=== PATIENT | male | born 1980 | race Caucasian/White ===

== ENCOUNTER 2019-12-03 15:21 | Inpatient (IN) | payer SELFPAY ==
[~2019-12-03] VITALS: Ht 177.8 cm; Wt 94.0 kg
--- NOTE | 2019-12-03 15:21 | NUR ---
Patient is AOx4, +nausea, photophobia, c/o severe dizziness with left eye pains & right ear pains, WHITEHEAD, equal strength on all extremities, respiration:easy, skin warm & dry, pending MD evaluation
[2019-12-03] MEDS ORDERED: MECLIZINE HCL 25 MG TABLET ONE (15:42)
[2019-12-03] MEDS ORDERED: ONDANSETRON 4 MG/2 ML VIAL ONE (15:45)
[2019-12-03] MEDS ORDERED: ONDANSETRON 4 MG/2 ML VIAL IV ONE (15:45)
[2019-12-03] MEDS ORDERED: MECLIZINE HCL 25 MG TABLET PO ONE (15:45)
[2019-12-03] MEDS ORDERED: IV NORMAL SALINE 1000 ML BAG IV ONE (15:45)
[2019-12-03 15:56] LABS: BASOPHILS # (AUTO) 0.1 K/uL (0.0-8.0); BASOPHILS % (AUTO) 0.7 % (0.0-2.0); EOSINOPHILS # (AUTO) 0.1 K/uL (0.0-0.7); EOSINOPHILS % (AUTO) 1.7 % (0.0-7.0); HEMATOCRIT 45.3 % (36.7-47.1); HEMOGLOBIN 15.2 g/dL (12.5-16.3); LYMPHOCYTES # (AUTO) 1.8 K/uL (20.0-40.0); LYMPHOCYTES % (AUTO) 21.1 % (20.5-51.5); MEAN CORPUSCULAR HEMOGLOBIN 29.3 uug (23.8-33.4); MEAN CORPUSCULAR HGB CONC 34 g/dL (32.5-36.3); MEAN CORPUSCULAR VOLUME 87.1 fL (73.0-96.2); MONOCYTES # (AUTO) 0.6 K/uL (2.0-10.0); MONOCYTES % (AUTO) 6.9 % (0.0-11.0); NEUTROPHILS % (AUTO) 69.6 % (38.5-71.5); PLATELET COUNT (AUTO) 279 K/uL (152-348); WHITE BLOOD COUNT (AUTO) 8.6 K/uL (3.6-10.2)
[2019-12-03 16:18] LABS: CREATININE 1.1 mg/dL (0.6-1.3); POTASSIUM 3.2 mmol/L (3.5-5.1)
[2019-12-03 16:24] LABS: BILIRUBIN,DIRECT 0.1 mg/dL (0.0-0.2); BILIRUBIN,TOTAL 0.5 mg/dL (0.2-1.0); TOTAL PROTEIN, SERUM 7.1 g/dL (6.4-8.2)
[2019-12-03] MEDS ORDERED: IV NORMAL SALINE 250 ML IV ONE (16:28)
[2019-12-03] MEDS ORDERED: SWABABLE VALVE TRANSFER SET EA MC ONE (16:28)
[2019-12-03] MEDS ORDERED: IOHEXOL 350 100 ML INFUS..BTL ONE (16:28)
--- NOTE | 2019-12-03 16:41 | NUR ---
Patient is back from CT scan, +vomiting yellowish gastric contents, MD is aware
[2019-12-03] MEDS ORDERED: CEFTRIAXONE 2 G in IV DEXTROSE 5% 100 ML IV ONE (17:15)
[2019-12-03] MEDS ORDERED: CEFTRIAXONE /D5W 50ML IVPB **ER PYXIS IV ONE (17:23)
--- NOTE | 2019-12-03 18:55 | NUR ---
Patient is in radiology department for procedure.
--- NOTE | 2019-12-03 19:11 | NUR ---
Patient is still in radiology department, endorsed to RITA Lee accordingly
--- NOTE | 2019-12-03 19:20 | NUR ---
Patient returned from Radiology, patient underwent fluoroscopy guided lumbar puncture.
[2019-12-03 20:09] LABS: CSF PROTEIN 45 mg/dL (15-45)
--- NOTE | 2019-12-03 20:20 | NUR ---
Critical Lab: CSF GLUCOSE - 75, readback and verified by Maite. ERMD aware, no new orders.
[2019-12-03 20:29] LABS: CSF GLUCOSE 75 mg/dL (40-70)
--- NOTE | 2019-12-03 22:21 | NUR ---
Bean Rodriguez paged, awaiting call back.
--- NOTE | 2019-12-03 22:42 | NUR ---
Bean Rodriguez on the line with ERMD
--- NOTE | 2019-12-03 23:14 | NUR ---
Report given to RITA Gasca
[2019-12-03] MEDS ORDERED: POTASSIUM CHLORIDE 20 MEQ TAB.PRT.SR PO ONE (23:45)
[2019-12-03] MEDS ORDERED: Z GUARD REMEDY PASTE 57 GM TUBE TOP PRN (23:45)
[2019-12-03] MEDS ORDERED: ACETAMINOPHEN 325 MG TABLET PO PRN (23:45)
--- NOTE | 2019-12-04 | NUR ---
Patient transported to TELE in stable condition.
--- NOTE | 2019-12-04 00:15 | NUR ---
ADMISSION NOTES Patient received into care via gurney from ER. Patient is alert/oriented x4 and complaining of headache but no n/v. All pertinent assessments completed. All safety, stroke, and fall precautions are in place. Call light and personal items are within reach at all times. Will continue to monitor and assess.
[2019-12-04 00:20] VITALS: BP 128/67
[2019-12-04 04:06] VITALS: BP 120/66
[2019-12-04] MEDS: PANTOPRAZOLE SODIUM 40 MG TABLET.DR PO SCH (06:05)
[2019-12-04 06:20] LABS: BASOPHILS # (AUTO) 0.1 K/uL (0.0-8.0); BASOPHILS % (AUTO) 0.6 % (0.0-2.0); EOSINOPHILS % (AUTO) 0.2 % (0.0-7.0); HEMATOCRIT 42.9 % (36.7-47.1); HEMOGLOBIN 14.4 g/dL (12.5-16.3); LYMPHOCYTES # (AUTO) 1.3 K/uL (20.0-40.0); LYMPHOCYTES % (AUTO) 8.8 % (20.5-51.5); MEAN CORPUSCULAR HEMOGLOBIN 29.2 uug (23.8-33.4); MEAN CORPUSCULAR HGB CONC 34 g/dL (32.5-36.3); MEAN CORPUSCULAR VOLUME 87.1 fL (73.0-96.2); MONOCYTES # (AUTO) 0.9 K/uL (2.0-10.0); MONOCYTES % (AUTO) 6.5 % (0.0-11.0); NEUTROPHILS % (AUTO) 83.9 % (38.5-71.5); PLATELET COUNT (AUTO) 281 K/uL (152-348); RED BLOOD CELL COUNT(AUTO) 4.92 MIL/uL (4.06-5.63); WHITE BLOOD COUNT (AUTO) 14.3 K/uL (3.6-10.2)
--- NOTE | 2019-12-04 06:57 | NUR ---
TEXTED DR. GIBSON FOR MRI APPROVAL.
[2019-12-04 07:12] LABS: BILIRUBIN,TOTAL 0.3 mg/dL (0.2-1.0); MAGNESIUM 2.2 mg/dL (1.8-2.4); PHOSPHOROUS 3.3 mg/dL (2.5-4.9); POTASSIUM 4.3 mmol/L (3.5-5.1); TOTAL PROTEIN, SERUM 7.1 g/dL (6.4-8.2)
[2019-12-04 07:57] LABS: THYROID STIMULATING HORMONE 0.349 mIU/mL (0.358-3.740)
[2019-12-04] MEDS ORDERED: ASPIRIN EC 81 MG TABLET.DR PO SCH (09:00)
[2019-12-04] MEDS ORDERED: INSULIN REGULAR, HUMAN 300 UNIT/3 ML VIAL SQ PRN (10:45)
[2019-12-04] MEDS ORDERED: DEXTROSE 50% 50 ML DISP.SYRIN IV PRN (10:45)
[2019-12-04] MEDS: ONDANSETRON 4 MG/2 ML VIAL IV PRN (11:30)
[2019-12-04] MEDS: BLOOD SUGAR DIAGNOSTIC 1 EACH STRIP VI SCH ×3 (11:35→20:55)
[2019-12-04 11:36] VITALS: BP 151/93
[2019-12-04] MEDS: ASPIRIN 325 MG TABLET PO SCH (14:06)
[2019-12-04] MEDS: CLOPIDOGREL 75 MG TABLET PO SCH (14:07)
[2019-12-04] MEDS ORDERED: CLOP75TA33 PO (14:08)
[2019-12-04] MEDS ORDERED: METF-440 PO (14:08)
[2019-12-04] MEDS ORDERED: ATOR40TA PO (14:08)
[2019-12-04] MEDS ORDERED: ASPI-612 PO (14:08)
[2019-12-04] MEDS ORDERED: MENT71OI TOP (14:08)
[2019-12-04] MEDS ORDERED: ACET325T53 PO (14:08)
[2019-12-04] MEDS ORDERED: INSU100V28 SQ (14:08)
[2019-12-04] MEDS ORDERED: Blood Sugar Diagnostic VI (14:08)
[2019-12-04] MEDS ORDERED: ONDA4VIA23 IV (14:08)
[2019-12-04] MEDS ORDERED: DEXT50DI8 IV (14:08)
[2019-12-04] MEDS ORDERED: PANT40TA2 PO (14:08)
--- NOTE | 2019-12-04 14:22 | NUR ---
Search Consultant Consultation: SW conducted a public health social worker consultation today, via ZOOM, for possible CVA. Patient is a 39 year old male who was brought into the ED via ambulance on 12/03/19, complaining of dizziness. Patient was lying on his side, in his hospital bed. Patient had his hand on his head, and his eyes were closed during most of the interview. Patient stated he was feeling dizzy, however was receptive to answering SW's questions. SW was able to gather personal history from the patient. Patient lives in an apartment with his fiance Mery ([address] [place] [address]. [id number], [place] [phone]). Patient reports being ambulatory, and independent with his ADL's and IADL's. Patient reports that he is currently not working, however his sources of income is unemployment. Patient's voice was a bit low, and sometimes muffled, requiring SW to ask the patient to repeat his responses, however patient was cooperative and repeated his responses when asked to. Patient is oriented x 4. SW administered the PHQ-9, and patient denied having any recent changes in his mood and behavior. Patient's PHQ-9 score is a 0. SW asked patient if he had any questions at this time, and patient stated that he just wanted to know more about his treatment plan at [facility]. SW told the patient that SW will let the charge nurse know that he wanted to learn more about his treatment plan, and will ask the nurse to meet with him to answer his questions. Patient expressed agreement. No further SS interventions needed at this time. SW informed charge nurse Marcia that patient had some more questions about his treatment plan, and asked if patient's nurse could meet with the patient to answer his questions. Marcia expressed agreement. Prior to this SW's interview, patient's attending physician, Roseann Nick NP, had just met with the patient to discuss his treatment plan. Roseann also spoke with this SW and informed this SW that the patient would be transferred to [facility] for further treatment. Patient's face sheet states patient is self-pay. JUAREZ verified with Electrical Installer Keke that patient has been referred to a Patient Accounts Construction Craft Laborer, who will follow-up with the patient to assist with insurance benefits.
[2019-12-04] MEDS: HEPARIN SODIUM,PORCINE 5,000 UNITS/ML VIAL SQ SCH ×2 (14:46→21:07)
[2019-12-04 15:06] VITALS: BP 120/59
--- NOTE | 2019-12-04 19:10 | NUR ---
Received pt in bed, sleeping, easy to arouse. Pt denies any acute distress or pain. Pt denies any severe headache or n/v at this time. Patient is AOx4, but having delays in responding. V/S stable, on room air. NSR on tele monitor. Safety measures in place. Fall and stroke precaution in place. Call light within reach. Will continue with the plan of care.
[2019-12-04 19:51] VITALS: BP 129/74
[2019-12-04] MEDS ORDERED: ATORVASTATIN 40 MG TABLET PO SCH (21:00)
[2019-12-05 00:22] VITALS: BP 127/72
[2019-12-05] MEDS: ONDANSETRON 4 MG/2 ML VIAL IV PRN (02:46)
[2019-12-05 05:11] VITALS: BP 153/79
[2019-12-05] MEDS: HEPARIN SODIUM,PORCINE 5,000 UNITS/ML VIAL SQ SCH ×2 (05:53→13:19)
[2019-12-05] MEDS: PANTOPRAZOLE SODIUM 40 MG TABLET.DR PO SCH (06:16)
[2019-12-05 06:21] LABS: BASOPHILS % (AUTO) 0.2 % (0.0-2.0); EOSINOPHILS % (AUTO) 0.1 % (0.0-7.0); HEMATOCRIT 45.7 % (36.7-47.1); HEMOGLOBIN 15.3 g/dL (12.5-16.3); LYMPHOCYTES # (AUTO) 1.4 K/uL (20.0-40.0); LYMPHOCYTES % (AUTO) 9.9 % (20.5-51.5); MEAN CORPUSCULAR HEMOGLOBIN 29.2 uug (23.8-33.4); MEAN CORPUSCULAR HGB CONC 33 g/dL (32.5-36.3); MEAN CORPUSCULAR VOLUME 87.5 fL (73.0-96.2); MONOCYTES # (AUTO) 1.1 K/uL (2.0-10.0); MONOCYTES % (AUTO) 7.7 % (0.0-11.0); NEUTROPHILS # (AUTO) 11.9 K/uL (1.8-8.9); NEUTROPHILS % (AUTO) 82.1 % (38.5-71.5); PLATELET COUNT (AUTO) 324 K/uL (152-348); RED BLOOD CELL COUNT(AUTO) 5.22 MIL/uL (4.06-5.63); WHITE BLOOD COUNT (AUTO) 14.5 K/uL (3.6-10.2)
[2019-12-05] MEDS: BLOOD SUGAR DIAGNOSTIC 1 EACH STRIP VI SCH ×4 (06:32→16:12)
[2019-12-05 06:36] LABS: CREATININE 1.1 mg/dL (0.6-1.3); MAGNESIUM 2.2 mg/dL (1.8-2.4); PHOSPHOROUS 2.9 mg/dL (2.5-4.9); POTASSIUM 3.4 mmol/L (3.5-5.1)
--- NOTE | 2019-12-05 06:45 | NUR ---
Pt slept intermittently through the night. Pt is awake and denies any acute distress or pain at this time. Pt denies headache/ N/V at this time. Patient had 1 episode of greenish emesis, Zofranx1 was given. Pt tolerated. Comfort care and needs attended. Fall precaution maintained. V/S stable on room air. Sinus [address] 58 on tele monitor. Safety measures in place. Bed low and locked in position. Call light within reach. Will endorse to the oncoming nurse accordingly.
--- NOTE | 2019-12-05 07:30 | NUR ---
AWAKE ALERT AND RESPOND TO SIMPLE QUESTIONS. NO SS OF PAIN OR SOB. CLOSELY MONITORED
[2019-12-05] MEDS: CLOPIDOGREL 75 MG TABLET PO SCH (08:03)
[2019-12-05] MEDS: ASPIRIN 325 MG TABLET PO SCH (08:03)
[2019-12-05] MEDS ORDERED: POTASSIUM CHLORIDE 50 ML IV SCH ×2 (09:00→10:00)
--- NOTE | 2019-12-05 09:00 | NUR ---
PATIENT TRIED TO GET OUT OF BED BY SELF, VERY UNSTEADY AND WEAK. HIGH RISK FOR FALL. 1;! SITTER OBTAINED
--- NOTE | 2019-12-05 10:04 | NUR ---
VERIFIED WITH Aldair LOPEZ REGARDING KCL DOSE AND SAID TO GIVE ONLY 10 MEQ X1. DOSE GIVEN
--- NOTE | 2019-12-05 11:52 | NUR ---
NO ACUTE CHANGE FROM AM ASSESSMENT. SEEN BY PASTE MAKER Aldair LOPEZ, NOTED LABS WITH LOW K, REPLACED WITH KCL 10 MEQ IV X1. NO SEIZURE OR ACUTE DISTRESS. 1:1 SITTER AT BEDSIDE FOR SAFETY
[2019-12-05 12:03] VITALS: BP 150/82
--- NOTE | 2019-12-05 16:00 | NUR ---
MARIN MARMOLEJO NOTIFIED OF PATIENT DISCHARGE TO [facility]
--- NOTE | 2019-12-05 16:46 | NUR ---
REPORT GIVEN TO MITESH, DISCHARGED TO [facility] VIA AMBULANCE ACLS
[2019-12-05] MEDS ORDERED: METFORMIN HCL 500 MG TABLET PO SCH (18:00)
== END 2019-12-05 16:45 | disposition short-term general hospital (02) | DRG 64 ==
LOC: ER 15:21 → TELE3 23:54
PROVIDERS: ADMIT Registered Nurse; ATTEND Registered Nurse
PROC: B01BYZZ Fluoroscopy of Spinal Cord using Other Contrast (ICD-10-PCS; principal; 2019-12-03)
PROC: 009U3ZX Drainage of Spinal Canal, Percutaneous Approach, Diagnostic (ICD-10-PCS; principal; 2019-12-03)
DX: I63.89 Other cerebral infarction (principal); I77.74 Dissection of vertebral artery; D72.829 Elevated white blood cell count, unspecified; E11.9 Type 2 diabetes mellitus without complications; E78.5 Hyperlipidemia, unspecified; E87.6 Hypokalemia; F17.210 Nicotine dependence, cigarettes, uncomplicated; E66.9 Obesity, unspecified; Z68.29 Body mass index [BMI] 29.0-29.9, adult; R40.2362 Coma scale, best motor response, obeys commands, at arrival to emergency department; R40.2142 Coma scale, eyes open, spontaneous, at arrival to emergency department; R40.2252 Coma scale, best verbal response, oriented, at arrival to emergency department; R29.701 NIHSS score 1; R42 Dizziness and giddiness
CPT/HCPCS: 36415; 62270; 70030-TC; 70450; 70496; 70551; 83735; 84100; 84157; 84443; 85025; 85610; 93005; 93307; 93880; A4663; G0378; J0696; J1644; J1815; J2405; J3480; J7030; J7050; J8597; Q9967

== ENCOUNTER 2019-12-09 17:58 | Inpatient (IN) | payer MEDICAID, SELFPAY ==
[~2019-12-09] VITALS: Ht 177.8 cm; Wt 90.7 kg
[~2019-12-09 17:58] MED LIST: ACET325T53 PO; ASPI-612 PO; ATOR40TA PO; Blood Sugar Diagnostic VI; CLOP75TA33 PO; DEXT50DI8 IV; INSU100V28 SQ; MENT71OI TOP; METF-440 PO; ONDA4VIA23 IV; PANT40TA2 PO
--- NOTE | 2019-12-09 18:10 | NUR ---
ADMITTED FROM [facility] A 39 YO MALE SP CVA, SP SHUNT FROM [facility] VIA AMBULANCE AWAKE ALERT AND ANSWERS SIMPLE QUESTIONS APPROPRIATELY, AWARE THAT HE IS AT [facility]. DENIES ANY PAIN OR SOB. DR Katharina OSULLIVAN NOTIFIED OF ADMISSION
[2019-12-09 18:13] VITALS: BP 150/98
[2019-12-09] MEDS ORDERED: DEXTROSE 50% 50 ML DISP.SYRIN IV PRN (19:15)
[2019-12-09] MEDS ORDERED: Z GUARD REMEDY PASTE 57 GM TUBE TOP PRN (19:15)
[2019-12-09] MEDS ORDERED: MAGNESIUM HYDROXIDE 30 ML LIQUID UDC PO PRN (19:15)
[2019-12-09] MEDS ORDERED: ONDANSETRON 4 MG/2 ML VIAL IV PRN (19:15)
[2019-12-09] MEDS ORDERED: ZOLPIDEM 5 MG TABLET PO PRN (19:15)
[2019-12-09] MEDS: IV NS 1000 ML 1,000 ML IV PRN (19:48)
--- NOTE | 2019-12-09 20:00 | NUR ---
Received sleeping, easily arouses to name, follows commands well. Denies headaches or dizziness. Safety and fall precautions discussed. IV started to LAC IV site; site no s/s of infiltrations. Addendum: 12/10/19 at 0042 by GRIFFIN WERNER RN Amended: Links added. Addendum: 12/10/19 at 0047 by GRIFFIN WERNER RN Amended: Links added. Addendum: 12/10/19 at 0049 by GRIFFIN WERNER RN Amended: Links added.
[2019-12-09 20:03] VITALS: BP 126/72
[2019-12-09] MEDS: BLOOD SUGAR DIAGNOSTIC 1 EACH STRIP VI SCH (20:09)
[2019-12-09] MEDS: DOCUSATE SODIUM 100 MG CAPSULE PO SCH (20:51)
[2019-12-09] MEDS: ATORVASTATIN 40 MG TABLET PO SCH (20:51)
--- NOTE | 2019-12-09 21:00 | NUR ---
Call received from Mery Gunn #[phone] who claims to be the patient's rosye. Able to take po meds without swallowing difficulty. Bruises noted to abdomen and R side of neck. Voided using the urinal; clear corine urine. Addendum: 12/10/19 at 0047 by GRIFFIN WERNER RN Amended: Links added. Addendum: 12/10/19 at 0049 by GRIFFIN WERNER RN Amended: Links added.
[2019-12-10] VITALS: BP 123/78
--- NOTE | 2019-12-10 | NUR ---
Incontinent of urine. PM care provided. Patient cooperative, but disoriented to date and time. Reoriented PRN. Addendum: 12/10/19 at 0049 by GRIFFIN WERNER RN Amended: Links added.
--- NOTE | 2019-12-10 03:30 | NUR ---
Assisted to use the urinal; voided. Am care rendered; patient got mildly agitated during linen change; advised appropriately. Refusing DVT pumps. Addendum: 12/10/19 at 0433 by GRIFFIN WERNER RN Amended: Links added.
[2019-12-10 04:00] VITALS: BP 145/91
--- NOTE | 2019-12-10 06:00 | NUR ---
Turned and repositioned; gets easily agitated with repositioning and care. Advised appropriately. No neuro changes.
[2019-12-10] MEDS: BLOOD SUGAR DIAGNOSTIC 1 EACH STRIP VI SCH ×4 (06:31→21:00)
[2019-12-10] MEDS: PANTOPRAZOLE SODIUM 40 MG TABLET.DR PO SCH (06:31)
[2019-12-10 06:44] LABS: BASOPHILS # (AUTO) 0.1 K/uL (0.0-8.0); BASOPHILS % (AUTO) 0.5 % (0.0-2.0); EOSINOPHILS % (AUTO) 0.2 % (0.0-7.0); HEMATOCRIT 42.3 % (36.7-47.1); HEMOGLOBIN 14.4 g/dL (12.5-16.3); LYMPHOCYTES # (AUTO) 1.6 K/uL (20.0-40.0); LYMPHOCYTES % (AUTO) 11.1 % (20.5-51.5); MEAN CORPUSCULAR HEMOGLOBIN 29.5 uug (23.8-33.4); MEAN CORPUSCULAR HGB CONC 34 g/dL (32.5-36.3); MEAN CORPUSCULAR VOLUME 86.8 fL (73.0-96.2); MONOCYTES # (AUTO) 1.2 K/uL (2.0-10.0); MONOCYTES % (AUTO) 8.4 % (0.0-11.0); NEUTROPHILS # (AUTO) 11.4 K/uL (1.8-8.9); NEUTROPHILS % (AUTO) 79.8 % (38.5-71.5); PLATELET COUNT (AUTO) 342 K/uL (152-348); RED BLOOD CELL COUNT(AUTO) 4.87 MIL/uL (4.06-5.63); WHITE BLOOD COUNT (AUTO) 14.3 K/uL (3.6-10.2)
[2019-12-10 06:59] LABS: BILIRUBIN,TOTAL 0.6 mg/dL (0.2-1.0); CREATININE 0.9 mg/dL (0.6-1.3); PHOSPHOROUS 2.7 mg/dL (2.5-4.9); POTASSIUM 3.4 mmol/L (3.5-5.1); TOTAL PROTEIN, SERUM 7.1 g/dL (6.4-8.2)
[2019-12-10 07:03] LABS: THYROID STIMULATING HORMONE 0.444 mIU/mL (0.358-3.740)
--- NOTE | 2019-12-10 07:31 | NUR ---
IN BED AWAKE ALERT AND ABLE TO RESPOND WITH SIMPLE QUESTIONS AND FOLLOWS COMMAND. NO SS OF PAIN OR RESP DISTRESS. JUNCTIONAL NON SUSTAINED WITH ULSR/SB ON MONITOR. ZIO-PATCH LEFT CHEST INTACT. STROKE PROTOCOL IN PLACED
[2019-12-10] MEDS: ASPIRIN 325 MG TABLET PO SCH (08:07)
[2019-12-10] MEDS: METFORMIN HCL 500 MG TABLET PO SCH ×2 (08:07→16:27)
[2019-12-10] MEDS: IV NS 1000 ML 1,000 ML IV PRN ×2 (08:07→21:30)
[2019-12-10] MEDS: DOCUSATE SODIUM 100 MG CAPSULE PO SCH ×2 (08:07→21:18)
[2019-12-10] MEDS: CLOPIDOGREL 75 MG TABLET PO SCH (08:07)
[2019-12-10] MEDS ORDERED: ASPIRIN EC 81 MG TABLET.DR PO SCH (09:00)
[2019-12-10] MEDS ORDERED: POTASSIUM CHLORIDE 20 MEQ TAB.PRT.SR PO ONE (09:30)
[2019-12-10] MEDS: HYDROCODONE/APAP 5-325MG TABLET PO PRN ×2 (10:18→22:38)
--- NOTE | 2019-12-10 10:50 | NUR ---
SEEN BY PT, OT, ST PLS SEE NOTES.
[2019-12-10 11:47] VITALS: BP 151/91
[2019-12-10 15:21] VITALS: BP 128/93
--- NOTE | 2019-12-10 15:54 | NUR ---
DR HOLMAN NOTIFIED OF PATIENT NEEDING PSYCH CONSULT RE: REFUSED TO PARTICIPATE WITH CARE, REFUSED TO EAT, NOT INTERACTING WITH CARE
--- NOTE | 2019-12-10 17:54 | NUR ---
no acute changes, no seizure, zio-patch left side of chest intact. sr on monitor. still waiting for dr padilla for psych eval
--- NOTE | 2019-12-10 19:15 | NUR ---
received patient on position , awake , able to repnd but slow, able to follow simple command , no slurring , iv intact lac nsat 75 ml/hr , incontinent , with a zio patch intact on left chest , sr at 87 , on ra , incision site on right side of the head by the ear , bruised but intact no bleeding noted , no distress noted
[2019-12-10 20:00] VITALS: BP 135/74
[2019-12-10] MEDS: ATORVASTATIN 40 MG TABLET PO SCH (21:17)
--- NOTE | 2019-12-10 22:00 | NUR ---
refused the intermittent stockings
[2019-12-11] VITALS: BP 144/75
--- NOTE | 2019-12-11 | NUR ---
SLEEPING CALMLY , EASILY AROUSABLE ,ALERT , NO SIGN OF DISTRESS , ABLE TO ANSWER APPROPRIATELY, NO SLURRING
--- NOTE | 2019-12-11 01:22 | NUR ---
SNACKS AND FLUID OFFERED REFUSED
--- NOTE | 2019-12-11 02:00 | NUR ---
sleeping comfortably no distress , easily arousable ,
[2019-12-11] MEDS: HYDROCODONE/APAP 5-325MG TABLET PO PRN ×2 (02:18→04:06)
[2019-12-11 04:00] VITALS: BP 156/80
--- NOTE | 2019-12-11 05:00 | NUR ---
awake , oriented , able to follow simple command , eyes slightly red ,vs taken , complained of pain , medication offered and accepted , norco pain medication given ,
--- NOTE | 2019-12-11 06:00 | NUR ---
awake oriented ,answer appropriately , complains of headache 3 /10 post norco , eyes less red , calm , iv ns 75 ml intact , incontinent
[2019-12-11] MEDS: BLOOD SUGAR DIAGNOSTIC 1 EACH STRIP VI SCH ×4 (06:13→21:11)
[2019-12-11 06:14] LABS: BASOPHILS % (AUTO) 0.3 % (0.0-2.0); EOSINOPHILS % (AUTO) 0.1 % (0.0-7.0); HEMOGLOBIN 14.4 g/dL (12.5-16.3); LYMPHOCYTES % (AUTO) 7.5 % (20.5-51.5); MEAN CORPUSCULAR HEMOGLOBIN 29.3 uug (23.8-33.4); MEAN CORPUSCULAR HGB CONC 34 g/dL (32.5-36.3); MEAN CORPUSCULAR VOLUME 85.5 fL (73.0-96.2); MONOCYTES # (AUTO) 0.9 K/uL (2.0-10.0); MONOCYTES % (AUTO) 6.7 % (0.0-11.0); NEUTROPHILS # (AUTO) 11.8 K/uL (1.8-8.9); NEUTROPHILS % (AUTO) 85.4 % (38.5-71.5); PLATELET COUNT (AUTO) 372 K/uL (152-348); RED BLOOD CELL COUNT(AUTO) 4.91 MIL/uL (4.06-5.63); WHITE BLOOD COUNT (AUTO) 13.8 K/uL (3.6-10.2)
[2019-12-11 06:26] LABS: CREATININE 0.9 mg/dL (0.6-1.3); POTASSIUM 3.2 mmol/L (3.5-5.1)
[2019-12-11] MEDS: PANTOPRAZOLE SODIUM 40 MG TABLET.DR PO SCH (06:46)
--- NOTE | 2019-12-11 07:20 | NUR ---
Received report from shift commander nurse, patient in bed asleep, no distress noted at this time, bed in low position, side rails up x2. Bed alarm set. Sinus jesus on the monitor,
[2019-12-11] MEDS: DOCUSATE SODIUM 100 MG CAPSULE PO SCH ×2 (09:02→21:01)
[2019-12-11] MEDS: ACETAMINOPHEN 325 MG TABLET PO PRN ×2 (09:02→17:11)
[2019-12-11] MEDS: METFORMIN HCL 500 MG TABLET PO SCH ×2 (09:03→17:11)
[2019-12-11] MEDS: CLOPIDOGREL 75 MG TABLET PO SCH (09:03)
[2019-12-11] MEDS: ASPIRIN 325 MG TABLET PO SCH (09:03)
[2019-12-11 11:00] VITALS: BP 149/91
[2019-12-11] MEDS: POTASSIUM CHLORIDE 50 ML IV SCH ×4 (11:00→13:40)
--- NOTE | 2019-12-11 12:30 | NUR ---
Patient was given lunch and encouraged to eat, patient able to drink all of boost independently after opened and handed to him with a straw, no difficulty swallowing. puree diet tolerated well but needed additional encouragement to continue eating. Full assist with feeding due to lack of motivation to eat.
[2019-12-11] MEDS: LOSARTAN POTASSIUM 50 MG TABLET PO SCH (12:45)
[2019-12-11 15:15] VITALS: BP 141/84
--- NOTE | 2019-12-11 17:00 | NUR ---
Patient given a bed bath with patient authorization. Asked if he could stand and he stated that he cannot. patient is able to mobilize in the bed independently. Upon evaluation, patient's midline noted to be pulled out.
[2019-12-11 20:31] VITALS: BP 139/96
[2019-12-11] MEDS ORDERED: risperiDONE 0.5 MG TABLET PO SCH (21:00)
[2019-12-11] MEDS: MIRTAZAPINE 15 MG TABLET PO SCH (21:01)
[2019-12-11] MEDS: ATORVASTATIN 40 MG TABLET PO SCH (21:01)
[2019-12-12 00:46] VITALS: BP 114/67
[2019-12-12] MEDS: ACETAMINOPHEN 325 MG TABLET PO PRN ×3 (01:15→17:48)
[2019-12-12 05:13] VITALS: BP 120/72
[2019-12-12] MEDS: IV NS 1000 ML 1,000 ML IV PRN (05:33)
[2019-12-12] MEDS: BLOOD SUGAR DIAGNOSTIC 1 EACH STRIP VI SCH ×4 (06:23→20:46)
[2019-12-12] MEDS: PANTOPRAZOLE SODIUM 40 MG TABLET.DR PO SCH (06:23)
--- NOTE | 2019-12-12 07:09 | NUR ---
Pt rested well in between care; no acute distress; safety maintained assisted to BSC; had a BM; pulled out IV and reinserted to Right hand; continue to monitor; continue plan of care.
--- NOTE | 2019-12-12 07:10 | NUR ---
Received report from aircraft charter dispatcher nurse, patient in bed asleep, no distress noted. Bed in low position, side rails up x2, bed alarm on. Sinus rhythm on the monitor. patient on room air.
--- NOTE | 2019-12-12 08:00 | NUR ---
Patient tolerated puree diet and doesn't want to eat due to taste, diet trial to be upgraded for lunch.
[2019-12-12] MEDS: DOCUSATE SODIUM 100 MG CAPSULE PO SCH ×2 (08:57→20:39)
[2019-12-12] MEDS: ASPIRIN 325 MG TABLET PO SCH (08:57)
[2019-12-12] MEDS: METFORMIN HCL 500 MG TABLET PO SCH ×2 (08:57→17:49)
[2019-12-12] MEDS: CLOPIDOGREL 75 MG TABLET PO SCH (08:58)
[2019-12-12] MEDS: LOSARTAN POTASSIUM 50 MG TABLET PO SCH (09:02)
[2019-12-12 11:00] LABS: BASOPHILS # (AUTO) 0.1 K/uL (0.0-8.0); BASOPHILS % (AUTO) 0.9 % (0.0-2.0); EOSINOPHILS # (AUTO) 0.1 K/uL (0.0-0.7); EOSINOPHILS % (AUTO) 0.4 % (0.0-7.0); HEMATOCRIT 44.2 % (36.7-47.1); HEMOGLOBIN 15.3 g/dL (12.5-16.3); LYMPHOCYTES # (AUTO) 1.6 K/uL (20.0-40.0); LYMPHOCYTES % (AUTO) 12.7 % (20.5-51.5); MEAN CORPUSCULAR HEMOGLOBIN 30.1 uug (23.8-33.4); MEAN CORPUSCULAR HGB CONC 35 g/dL (32.5-36.3); MEAN CORPUSCULAR VOLUME 86.6 fL (73.0-96.2); MONOCYTES # (AUTO) 1.3 K/uL (2.0-10.0); MONOCYTES % (AUTO) 10.1 % (0.0-11.0); NEUTROPHILS # (AUTO) 9.7 K/uL (1.8-8.9); NEUTROPHILS % (AUTO) 75.9 % (38.5-71.5); PLATELET COUNT (AUTO) 356 K/uL (152-348); WHITE BLOOD COUNT (AUTO) 12.8 K/uL (3.6-10.2)
[2019-12-12 11:22] LABS: CREATININE 0.9 mg/dL (0.6-1.3); POTASSIUM 3.2 mmol/L (3.5-5.1)
[2019-12-12 11:25] LABS: PHOSPHOROUS 2.9 mg/dL (2.5-4.9)
[2019-12-12 11:30] VITALS: BP 137/75
--- NOTE | 2019-12-12 12:00 | NUR ---
Bedside nursing swallow evaluation for chopped diet during lunch performed. Patient tolerated with no complications. Patient up in chair for meal and improved meal intake observed.
[2019-12-12 16:01] VITALS: BP 144/75
[2019-12-12] MEDS ORDERED: POTASSIUM CHLORIDE 20 MEQ TAB.PRT.SR PO ONE (16:30)
[2019-12-12] MEDS ORDERED: POTASSIUM CHLORIDE 20 MEQ POWDER PACKET PO ONE (17:00)
--- NOTE | 2019-12-12 18:02 | NUR ---
Patient independently eating dinner. Left arm continues to be mildly neglected but strength intact. no swallowing difficulty during meal. Pills taken whole.
--- NOTE | 2019-12-12 19:30 | NUR ---
Received patient lying in bed. No signs or symptoms of acute distress noted at this time. Patient denies pain, or SOB. Right upper arm midline intact and infusing ordered fluids. Bed locked and low. Safety measures in place and will continue to monitor.
[2019-12-12 20:00] VITALS: BP 130/79
[2019-12-12] MEDS: ATORVASTATIN 40 MG TABLET PO SCH (20:39)
[2019-12-12] MEDS: MIRTAZAPINE 15 MG TABLET PO SCH (20:39)
[2019-12-12] MEDS: risperiDONE 1 MG TABLET PO SCH (20:39)
[2019-12-13] VITALS: BP 122/68
[2019-12-13] MEDS: ACETAMINOPHEN 325 MG TABLET PO PRN (00:07)
[2019-12-13] MEDS: IV NS 1000 ML 1,000 ML IV PRN ×2 (00:09→15:14)
[2019-12-13 04:00] VITALS: BP 120/60
[2019-12-13] MEDS: PANTOPRAZOLE SODIUM 40 MG TABLET.DR PO SCH (06:20)
[2019-12-13] MEDS: BLOOD SUGAR DIAGNOSTIC 1 EACH STRIP VI SCH ×4 (06:43→20:27)
[2019-12-13 07:09] LABS: BASOPHILS % (AUTO) 0.3 % (0.0-2.0); EOSINOPHILS % (AUTO) 0.3 % (0.0-7.0); HEMATOCRIT 42.6 % (36.7-47.1); HEMOGLOBIN 14.5 g/dL (12.5-16.3); LYMPHOCYTES # (AUTO) 1.3 K/uL (20.0-40.0); LYMPHOCYTES % (AUTO) 10.4 % (20.5-51.5); MEAN CORPUSCULAR HEMOGLOBIN 29.7 uug (23.8-33.4); MEAN CORPUSCULAR HGB CONC 34 g/dL (32.5-36.3); MEAN CORPUSCULAR VOLUME 87.2 fL (73.0-96.2); MONOCYTES # (AUTO) 1.1 K/uL (2.0-10.0); MONOCYTES % (AUTO) 8.4 % (0.0-11.0); NEUTROPHILS # (AUTO) 10.1 K/uL (1.8-8.9); NEUTROPHILS % (AUTO) 80.6 % (38.5-71.5); PLATELET COUNT (AUTO) 377 K/uL (152-348); RED BLOOD CELL COUNT(AUTO) 4.89 MIL/uL (4.06-5.63); WHITE BLOOD COUNT (AUTO) 12.5 K/uL (3.6-10.2)
[2019-12-13 07:27] LABS: MAGNESIUM 1.9 mg/dL (1.8-2.4); POTASSIUM 3.3 mmol/L (3.5-5.1)
[2019-12-13] MEDS: ASPIRIN 325 MG TABLET PO SCH (08:37)
[2019-12-13] MEDS: CLOPIDOGREL 75 MG TABLET PO SCH (08:37)
[2019-12-13] MEDS: DOCUSATE SODIUM 100 MG CAPSULE PO SCH ×2 (08:37→20:25)
[2019-12-13] MEDS: METFORMIN HCL 500 MG TABLET PO SCH ×2 (08:37→17:56)
[2019-12-13] MEDS: LOSARTAN POTASSIUM 50 MG TABLET PO SCH (08:38)
[2019-12-13 11:08] VITALS: BP 145/90
[2019-12-13] MEDS ORDERED: POTASSIUM CHLORIDE 20 MEQ TAB.PRT.SR PO ONE (11:15)
[2019-12-13 15:30] VITALS: BP 148/94
[2019-12-13 20:01] VITALS: BP 140/88
[2019-12-13] MEDS: MIRTAZAPINE 15 MG TABLET PO SCH (20:25)
[2019-12-13] MEDS: risperiDONE 1 MG TABLET PO SCH (20:25)
[2019-12-13] MEDS: ATORVASTATIN 40 MG TABLET PO SCH (20:26)
--- NOTE | 2019-12-13 20:30 | NUR ---
Received Patient alert and verbally responsive, no respiratory distress noted, denies pain.Has midline on Right upper arm intact with NS at 75 cc/hr.At 20:14 Patient noted with 1x episode of sinus tachy HR160.Patient was on bedside commode by himself.Assisted patient back to bed.Call light with in reach.Reinforced teaching to use call light for assistance. Bed locked and lowest position.Continue safety measures.Will continue to monitor.
[2019-12-14 00:39] VITALS: BP 140/76
[2019-12-14] MEDS: IV NS 1000 ML 1,000 ML IV PRN (03:37)
[2019-12-14 04:00] VITALS: BP 134/68
[2019-12-14] MEDS: PANTOPRAZOLE SODIUM 40 MG TABLET.DR PO SCH (06:04)
[2019-12-14] MEDS: BLOOD SUGAR DIAGNOSTIC 1 EACH STRIP VI SCH ×4 (06:13→20:19)
--- NOTE | 2019-12-14 06:14 | NUR ---
Patient awake sitting in the edge of bed, able to make needs known no s/s of distress noted.Has Zio path on left upper chest in place.Noted with skin discoloration on anterior neck ,Right side of the neck and mid abdomen.Midline intact on right upper arm.Due meds given .BS checked 105.Call light with in reach.Safety measures in place.Endorse to oncoming nurse.
[2019-12-14 06:21] LABS: BASOPHILS # (AUTO) 0.1 K/uL (0.0-8.0); BASOPHILS % (AUTO) 0.8 % (0.0-2.0); EOSINOPHILS # (AUTO) 0.1 K/uL (0.0-0.7); EOSINOPHILS % (AUTO) 0.7 % (0.0-7.0); HEMATOCRIT 42.4 % (36.7-47.1); HEMOGLOBIN 14.3 g/dL (12.5-16.3); LYMPHOCYTES % (AUTO) 15.1 % (20.5-51.5); MEAN CORPUSCULAR HEMOGLOBIN 29.7 uug (23.8-33.4); MEAN CORPUSCULAR HGB CONC 34 g/dL (32.5-36.3); MEAN CORPUSCULAR VOLUME 87.6 fL (73.0-96.2); MONOCYTES # (AUTO) 1.3 K/uL (2.0-10.0); MONOCYTES % (AUTO) 9.7 % (0.0-11.0); NEUTROPHILS # (AUTO) 9.7 K/uL (1.8-8.9); NEUTROPHILS % (AUTO) 73.7 % (38.5-71.5); PLATELET COUNT (AUTO) 349 K/uL (152-348); RED BLOOD CELL COUNT(AUTO) 4.84 MIL/uL (4.06-5.63); WHITE BLOOD COUNT (AUTO) 13.1 K/uL (3.6-10.2)
[2019-12-14 06:49] LABS: CREATININE 0.9 mg/dL (0.6-1.3); MAGNESIUM 2.1 mg/dL (1.8-2.4); POTASSIUM 3.2 mmol/L (3.5-5.1)
--- NOTE | 2019-12-14 08:00 | NUR ---
Pt confused denies any c/o pain. PT states that he is no hearing any voices. Pt is slow to respond. Noted right lateral bruising on right ear, purple bruise noted in front on clavicle/ sternum area, . purple bruising on abdomen, and right hip yellow bruise noted. PT has zio patch on left cw. Midline was pulled out by pt. Pt has IV on right had flushing well. Call light is within reach.
[2019-12-14] MEDS: CLOPIDOGREL 75 MG TABLET PO SCH (09:08)
[2019-12-14] MEDS: DOCUSATE SODIUM 100 MG CAPSULE PO SCH ×2 (09:08→20:11)
[2019-12-14] MEDS: METFORMIN HCL 500 MG TABLET PO SCH ×2 (09:08→16:44)
[2019-12-14] MEDS: LOSARTAN POTASSIUM 50 MG TABLET PO SCH (09:11)
[2019-12-14] MEDS: ASPIRIN EC 81 MG TABLET.DR PO SCH (09:18)
[2019-12-14] MEDS ORDERED: POTASSIUM CHLORIDE 20 MEQ TAB.PRT.SR PO ONE (11:15)
[2019-12-14 11:42] VITALS: BP 122/71
[2019-12-14] MEDS: ACETAMINOPHEN 325 MG TABLET PO PRN (11:52)
--- NOTE | 2019-12-14 12:00 | NUR ---
Pt had diarrhea noted. Pt was continent of bowel and bladder. Pt has poor appetite - DETECTIVE feeding pt. Pt does not initiate feeding himself.
[2019-12-14] MEDS: INSULIN REGULAR, HUMAN 300 UNIT/3 ML VIAL SQ PRN ×2 (12:18→20:44)
[2019-12-14 16:00] VITALS: BP 118/73
[2019-12-14 20:00] VITALS: BP 112/69
[2019-12-14] MEDS: risperiDONE 1 MG TABLET PO SCH (20:11)
[2019-12-14] MEDS: ATORVASTATIN 40 MG TABLET PO SCH (20:12)
[2019-12-14] MEDS: MIRTAZAPINE 15 MG TABLET PO SCH (20:12)
[2019-12-15] MEDS: HYDROCODONE/APAP 5-325MG TABLET PO PRN (04:20)
[2019-12-15 04:36] VITALS: BP 141/76
[2019-12-15] MEDS: IV NS 1000 ML 1,000 ML IV PRN (04:47)
[2019-12-15] MEDS: PANTOPRAZOLE SODIUM 40 MG TABLET.DR PO SCH (06:04)
[2019-12-15] MEDS: BLOOD SUGAR DIAGNOSTIC 1 EACH STRIP VI SCH ×4 (06:16→21:35)
--- NOTE | 2019-12-15 06:45 | NUR ---
Patient slept intermittently in RA saturating well 96%,no s/s of distress,uses bedside commode BM x1.IV line patent on right hand with Ns 0.9 running well at 75 cc/hr. Call light with in reach .Continue safety measures.
[2019-12-15 07:07] LABS: BASOPHILS # (AUTO) 0.1 K/uL (0.0-8.0); BASOPHILS % (AUTO) 0.4 % (0.0-2.0); EOSINOPHILS # (AUTO) 0.1 K/uL (0.0-0.7); EOSINOPHILS % (AUTO) 0.6 % (0.0-7.0); HEMATOCRIT 41.5 % (36.7-47.1); LYMPHOCYTES # (AUTO) 1.8 K/uL (20.0-40.0); LYMPHOCYTES % (AUTO) 11.4 % (20.5-51.5); MEAN CORPUSCULAR HEMOGLOBIN 29.4 uug (23.8-33.4); MEAN CORPUSCULAR HGB CONC 34 g/dL (32.5-36.3); MEAN CORPUSCULAR VOLUME 87.1 fL (73.0-96.2); MONOCYTES # (AUTO) 1.3 K/uL (2.0-10.0); MONOCYTES % (AUTO) 8.6 % (0.0-11.0); NEUTROPHILS # (AUTO) 12.3 K/uL (1.8-8.9); PLATELET COUNT (AUTO) 388 K/uL (152-348); RED BLOOD CELL COUNT(AUTO) 4.76 MIL/uL (4.06-5.63); WHITE BLOOD COUNT (AUTO) 15.6 K/uL (3.6-10.2)
[2019-12-15 07:15] LABS: MAGNESIUM 1.9 mg/dL (1.8-2.4); PHOSPHOROUS 4.3 mg/dL (2.5-4.9); POTASSIUM 3.7 mmol/L (3.5-5.1)
[2019-12-15] MEDS: METFORMIN HCL 500 MG TABLET PO SCH ×2 (08:14→17:05)
[2019-12-15] MEDS: CLOPIDOGREL 75 MG TABLET PO SCH (08:14)
[2019-12-15] MEDS: DOCUSATE SODIUM 100 MG CAPSULE PO SCH ×3 (08:14→21:00)
[2019-12-15] MEDS: ASPIRIN EC 81 MG TABLET.DR PO SCH (08:15)
[2019-12-15] MEDS: LOSARTAN POTASSIUM 50 MG TABLET PO SCH (08:23)
--- NOTE | 2019-12-15 09:00 | NUR ---
Held colace today secondary to loose stool from yesterday. Pt seen walking with physical therapy in hallway. Pt tolerated physical therapy.
[2019-12-15 11:41] VITALS: BP 121/71
[2019-12-15 14:36] LABS: *BILIRUBIN,URIN NEGATIVE (NEGATIVE); *BLOOD, URINE NEGATIVE (NEGATIVE); *CLARITY,URINE CLEAR (CLEAR); *COLOR,URINE YELLOW (YELLOW); *KETONES,URINE NEGATIVE (NEGATIVE); *UROBILINOGEN,URINE 0.2 E.U./dl (NORMAL); LEUKOCYTE ESTERASE ,URINE NEGATIVE (NEGATIVE); NITRITE, URINE NEGATIVE (NEGATIVE); UGLUCOSE NEGATIVE (NEGATIVE)
[2019-12-15] MEDS: METRONIDAZOLE 500 MG/NS 100ML 500 MG in PREMIXED 1 EACH IV SCH ×2 (14:44→21:20)
[2019-12-15 15:27] VITALS: BP 130/70
--- NOTE | 2019-12-15 16:00 | NUR ---
Lactic acid 2.5 critical noted to Hospitalist. New order received to bolus 1 lit NS and increase Main IVF to 100cc/hr.
[2019-12-15] MEDS ORDERED: IV NS 1000 ML 1,000 ML IV ONE (16:45)
[2019-12-15] MEDS: MEGESTROL ACETATE 20 MG TABLET PO SCH (17:05)
[2019-12-15 18:16] LABS: BILIRUBIN,DIRECT 0.2 mg/dL (0.0-0.2); BILIRUBIN,TOTAL 0.5 mg/dL (0.2-1.0)
--- NOTE | 2019-12-15 18:30 | NUR ---
Pt denies any c/o pain. No further diarrhea noted for today.
--- NOTE | 2019-12-15 18:35 | NUR ---
Pito here to see pt for ID eval. Urine sent @ 1300 as ordered earlier. No stool or diarrhea noted today.
--- NOTE | 2019-12-15 19:45 | NUR ---
Received patient asleep. Patient shows no signs or symptoms of distress at this time. Vital signs stable. Bed set to lowest position. Bed alarm set. Side rails x2 are up. Call light within reach. Will continue to monitor patient.
[2019-12-15 20:00] VITALS: BP 122/74
[2019-12-15] MEDS: risperiDONE 1 MG TABLET PO SCH (21:20)
[2019-12-15] MEDS: ATORVASTATIN 40 MG TABLET PO SCH (21:20)
[2019-12-15] MEDS: MIRTAZAPINE 15 MG TABLET PO SCH (21:20)
[2019-12-16] MEDS: HYDROCODONE/APAP 5-325MG TABLET PO PRN (00:47)
[2019-12-16] MEDS: IV NS 1000 ML 1,000 ML IV PRN ×2 (00:53→17:42)
[2019-12-16 04:06] VITALS: BP 107/62
[2019-12-16] MEDS: METRONIDAZOLE 500 MG/NS 100ML 500 MG in PREMIXED 1 EACH IV SCH ×3 (05:14→22:03)
[2019-12-16] MEDS: PANTOPRAZOLE SODIUM 40 MG TABLET.DR PO SCH (06:14)
[2019-12-16] MEDS: BLOOD SUGAR DIAGNOSTIC 1 EACH STRIP VI SCH ×4 (06:19→20:13)
[2019-12-16 06:56] LABS: BASOPHILS # (AUTO) 0.1 K/uL (0.0-8.0); BASOPHILS % (AUTO) 0.5 % (0.0-2.0); EOSINOPHILS # (AUTO) 0.2 K/uL (0.0-0.7); EOSINOPHILS % (AUTO) 1.2 % (0.0-7.0); HEMATOCRIT 38.8 % (36.7-47.1); HEMOGLOBIN 13.3 g/dL (12.5-16.3); LYMPHOCYTES # (AUTO) 2.1 K/uL (20.0-40.0); LYMPHOCYTES % (AUTO) 16.1 % (20.5-51.5); MEAN CORPUSCULAR HEMOGLOBIN 29.8 uug (23.8-33.4); MEAN CORPUSCULAR HGB CONC 34 g/dL (32.5-36.3); MEAN CORPUSCULAR VOLUME 86.9 fL (73.0-96.2); MONOCYTES # (AUTO) 1.2 K/uL (2.0-10.0); MONOCYTES % (AUTO) 9.1 % (0.0-11.0); NEUTROPHILS # (AUTO) 9.4 K/uL (1.8-8.9); NEUTROPHILS % (AUTO) 73.1 % (38.5-71.5); PLATELET COUNT (AUTO) 376 K/uL (152-348); RED BLOOD CELL COUNT(AUTO) 4.46 MIL/uL (4.06-5.63); WHITE BLOOD COUNT (AUTO) 12.9 K/uL (3.6-10.2)
[2019-12-16 07:23] LABS: MAGNESIUM 2.1 mg/dL (1.8-2.4); PHOSPHOROUS 3.7 mg/dL (2.5-4.9); POTASSIUM 3.5 mmol/L (3.5-5.1)
--- NOTE | 2019-12-16 07:30 | NUR ---
Received Patient dozing intermittently but responsive, no respiratory distress noted, patient denies pain. Has midline on Right upper arm intact and patent as well as a right hang 20 gauge, the midline is running NS at 100mls/hr. Patient is showing some neglect on the left side which makes him unsteady and not able to ambulate without assistance. Patient was on bedside commode by himself. Assisted patient to commode and back to bed. Call light with in reach as well as belongings. Reinforced teaching to use call light for assistance. Bed locked and lowest position.Continue safety measures.Will continue to monitor.
[2019-12-16] MEDS: CLOPIDOGREL 75 MG TABLET PO SCH (08:24)
[2019-12-16] MEDS: DOCUSATE SODIUM 100 MG CAPSULE PO SCH ×2 (08:24→20:10)
[2019-12-16] MEDS: MEGESTROL ACETATE 20 MG TABLET PO SCH ×2 (08:24→17:15)
[2019-12-16] MEDS: ASPIRIN EC 81 MG TABLET.DR PO SCH (08:24)
[2019-12-16] MEDS: METFORMIN HCL 500 MG TABLET PO SCH ×2 (08:25→17:15)
[2019-12-16] MEDS: LOSARTAN POTASSIUM 50 MG TABLET PO SCH (08:33)
[2019-12-16 11:11] VITALS: BP 137/84
--- NOTE | 2019-12-16 12:00 | NUR ---
Rehab in with patient, report from rehab Sarah says patient is neglecting the left side and does not know his limitations. will continue to monitor.
[2019-12-16 16:11] VITALS: BP 139/71
--- NOTE | 2019-12-16 19:30 | NUR ---
Patient is resting in bed. No signs of respiratory distress noted at this time. Patient was compliant with all medications. He has no appetite and is not eating well. Gave all medications as prescribed. IV is midline in right upper arm and right hand 20 gauge. Both are patent and in tact. Safety precautions in place, bed in the lowest position and locked with call light and belongings within reach. Will endorse to oncoming nurse.
--- NOTE | 2019-12-16 19:31 | NUR ---
RECEIVED PT AWAKE,ALERT AND ORIENTEDX4. PT IN NO ACUTE DISTRESS. IV INTACT. SAFETY AND COMFORT PROVIDED. ALL NEEDS ARE MET. WILL CONTINUE TO MONITOR.
[2019-12-16 20:00] VITALS: BP 120/70
[2019-12-16] MEDS: MIRTAZAPINE 15 MG TABLET PO SCH (20:11)
[2019-12-16] MEDS: ATORVASTATIN 40 MG TABLET PO SCH (20:12)
[2019-12-16] MEDS: risperiDONE 1 MG TABLET PO SCH (20:12)
--- NOTE | 2019-12-16 21:46 | NUR ---
NOTIFY DR. LOPEZ REGARDING PT CT BRAIN WITHOUT CONTRAST RESULT AND PICTURES OF THE HEAD AND PILLOW OF THE PT. PT IN NO ACUTE DISTRESS. WILL CONTINUE TO MONITOR.
--- NOTE | 2019-12-16 21:49 | NUR ---
NOTIFY DR. ERIK FRANCIS REGARDING PT PICTURES OF THE HEAD AND THE PILLOW OF THE PT.
--- NOTE | 2019-12-16 22:35 | NUR ---
DR. LOPEZ ORDERED PT TO BE TRANSFERRED TO [facility] WITH [id number]. PT IN NO ACUTE DISTRESS, SAFETY AND COMFORT PROVIDED. WILL CONTINUE TO MONITOR.
[2019-12-17] VITALS: BP 106/57
[2019-12-17 04:00] VITALS: BP 138/78
[2019-12-17] MEDS: ACETAMINOPHEN 325 MG TABLET PO PRN ×2 (05:03→17:50)
[2019-12-17] MEDS: METRONIDAZOLE 500 MG/NS 100ML 500 MG in PREMIXED 1 EACH IV SCH ×2 (05:07→14:31)
[2019-12-17] MEDS: PANTOPRAZOLE SODIUM 40 MG TABLET.DR PO SCH (06:03)
[2019-12-17] MEDS: BLOOD SUGAR DIAGNOSTIC 1 EACH STRIP VI SCH ×4 (06:38→20:17)
[2019-12-17] MEDS: IV NS 1000 ML 1,000 ML IV PRN (06:53)
[2019-12-17 06:59] LABS: BASOPHILS # (AUTO) 0.1 K/uL (0.0-8.0); BASOPHILS % (AUTO) 0.7 % (0.0-2.0); EOSINOPHILS # (AUTO) 0.1 K/uL (0.0-0.7); EOSINOPHILS % (AUTO) 0.8 % (0.0-7.0); HEMATOCRIT 38.8 % (36.7-47.1); HEMOGLOBIN 13.4 g/dL (12.5-16.3); LYMPHOCYTES # (AUTO) 1.5 K/uL (20.0-40.0); LYMPHOCYTES % (AUTO) 13.1 % (20.5-51.5); MEAN CORPUSCULAR HEMOGLOBIN 29.9 uug (23.8-33.4); MEAN CORPUSCULAR HGB CONC 35 g/dL (32.5-36.3); MEAN CORPUSCULAR VOLUME 86.7 fL (73.0-96.2); MONOCYTES % (AUTO) 8.4 % (0.0-11.0); PLATELET COUNT (AUTO) 382 K/uL (152-348); RED BLOOD CELL COUNT(AUTO) 4.48 MIL/uL (4.06-5.63); WHITE BLOOD COUNT (AUTO) 11.7 K/uL (3.6-10.2)
[2019-12-17 07:08] LABS: MAGNESIUM 2.1 mg/dL (1.8-2.4); PHOSPHOROUS 3.8 mg/dL (2.5-4.9); POTASSIUM 3.4 mmol/L (3.5-5.1)
[2019-12-17 07:30] VITALS: BP 112/65
--- NOTE | 2019-12-17 07:36 | NUR ---
[facility] PATIENT IS AWAKE SITTING AT BEDSIDE PLACED CALL LIGHT NEXT TO HIM INSTRUCTED NOT TO GET OUT OF BED WITHOUT ASSISTANCE AND CALLING A NURSE.
--- NOTE | 2019-12-17 07:41 | NUR ---
PATIENT IS ABLE TO CALL [employer]OP[employer] LIGHT ASKED IF THEY ARE COOKING COWS HERE, I SAID NO, AND HE SAID ARE YOU SURE. ASKED IF HE KNEW WHERE HE WAS HE SAID YES AND I ASKED WHERE ARE YOU AND STATED HE IS IN THE HOSPITAL AND LAID BACK DOWN IN BED
[2019-12-17] MEDS: DOCUSATE SODIUM 100 MG CAPSULE PO SCH ×2 (08:03→20:07)
[2019-12-17] MEDS: METFORMIN HCL 500 MG TABLET PO SCH ×3 (08:03→17:22)
[2019-12-17] MEDS: MEGESTROL ACETATE 20 MG TABLET PO SCH ×2 (08:04→16:54)
[2019-12-17] MEDS: ASPIRIN EC 81 MG TABLET.DR PO SCH (08:04)
[2019-12-17] MEDS: CLOPIDOGREL 75 MG TABLET PO SCH (08:04)
[2019-12-17] MEDS: LOSARTAN POTASSIUM 50 MG TABLET PO SCH (08:05)
[2019-12-17] MEDS ORDERED: POTASSIUM CHLORIDE 20 MEQ TAB.PRT.SR PO ONE (10:00)
[2019-12-17 11:19] VITALS: BP 123/90
[2019-12-17 15:15] VITALS: BP 114/68
--- NOTE | 2019-12-17 17:22 | NUR ---
glucophage held. patient is not eating all day and has multiple episodes of loose diarrhea. patient's latest blood sugar 94.
--- NOTE | 2019-12-17 19:30 | NUR ---
RECEIVED PT ALERT AND ORIENTEDX4. PT IN NO ACUTE DISTRESS. IV INTACT. ASSISTED PT TO THE RESTROOM .PT FELT DIZZY WHEN GOING BACK TO THE BED BUT NO PAIN. CHECKED VITAL SIGNS. VITAL SIGNS WNL. SAFETY AND COMFORT PROVIDED. WILL CONTINUE TO MONITOR.
[2019-12-17 20:00] VITALS: BP 112/62
[2019-12-17] MEDS: risperiDONE 1 MG TABLET PO SCH (20:05)
[2019-12-17] MEDS: MIRTAZAPINE 15 MG TABLET PO SCH (20:05)
[2019-12-17] MEDS: ATORVASTATIN 40 MG TABLET PO SCH (20:06)
--- NOTE | 2019-12-18 01:00 | NUR ---
PT REQUESTED TO HOLD THE IV FLUIDS. PT IN NO ACUTE DISTRESS. WILL CONTINUE TO MONITOR.
--- NOTE | 2019-12-18 02:36 | NUR ---
PT WOKE UP AND TRYING TO GET OUT OF THE BED AND STATING" I'M LOOKING FOR MY BED." STAFF ORIENTED HIM THAT HE IS LAYING ON HIS BED. BED ALARM ON. SAFETY AND COMFORT PROVIDED. WILL CONTINUE TO MONITOR.
[2019-12-18 04:03] VITALS: BP 114/77
[2019-12-18] MEDS: IV NS 1000 ML 1,000 ML IV PRN (05:45)
[2019-12-18] MEDS: PANTOPRAZOLE SODIUM 40 MG TABLET.DR PO SCH (06:09)
--- NOTE | 2019-12-18 06:19 | NUR ---
PT SLEPT INTERMITTENTLY. PRESCRIBED MEDICATION GIVEN AND PT TOLERATED IT WELL. PT SOMETIMES FORGETFUL NEEDS REORIENTATION. HOLD THE MEDICATION COLACE BECAUSE PT HAD LIQUID STOOLS ON DAYSHIFT. PT REQUESTED TO HELD HIS IV FLUID AT 100H. RESUMED AT 0500H. SAFETY AND COMFORT PROVIDED.ALL NEEDS ARE MET. WILL ENDORSE TO INCOMING NURSE FOR CONTINUITY OF CARE.
[2019-12-18] MEDS: BLOOD SUGAR DIAGNOSTIC 1 EACH STRIP VI SCH ×2 (06:33→11:37)
[2019-12-18 06:51] LABS: BASOPHILS # (AUTO) 0.1 K/uL (0.0-8.0); BASOPHILS % (AUTO) 0.5 % (0.0-2.0); EOSINOPHILS # (AUTO) 0.1 K/uL (0.0-0.7); EOSINOPHILS % (AUTO) 1.4 % (0.0-7.0); HEMATOCRIT 42.2 % (36.7-47.1); HEMOGLOBIN 14.4 g/dL (12.5-16.3); LYMPHOCYTES # (AUTO) 1.6 K/uL (20.0-40.0); LYMPHOCYTES % (AUTO) 15.4 % (20.5-51.5); MEAN CORPUSCULAR HEMOGLOBIN 29.7 uug (23.8-33.4); MEAN CORPUSCULAR HGB CONC 34 g/dL (32.5-36.3); MEAN CORPUSCULAR VOLUME 86.8 fL (73.0-96.2); MONOCYTES % (AUTO) 9.4 % (0.0-11.0); NEUTROPHILS # (AUTO) 7.5 K/uL (1.8-8.9); NEUTROPHILS % (AUTO) 73.3 % (38.5-71.5); PLATELET COUNT (AUTO) 402 K/uL (152-348); RED BLOOD CELL COUNT(AUTO) 4.87 MIL/uL (4.06-5.63); WHITE BLOOD COUNT (AUTO) 10.2 K/uL (3.6-10.2)
[2019-12-18 06:59] LABS: MAGNESIUM 2.6 mg/dL (1.8-2.4); PHOSPHOROUS 3.7 mg/dL (2.5-4.9); POTASSIUM 3.5 mmol/L (3.5-5.1)
--- NOTE | 2019-12-18 08:00 | NUR ---
received pt. resting in bed alert oriented x4. pt. denies pain/ discomfort. pt. denies sob/ difficulty breathing. pt. states he does feel a little dizzy. pt. denies ringing in ears. Upper and lower body strength good. Pt. sitting up eating breakfast. Pt. has more appetite today. no diarrhea throughout night or this AM. IV in L forearm 20 gauge intact patent running prescribed fluids. safety measures in place. call light within reach. will continue to monitor pt.
[2019-12-18] MEDS: DOCUSATE SODIUM 100 MG CAPSULE PO SCH (08:06)
[2019-12-18] MEDS: METFORMIN HCL 500 MG TABLET PO SCH (08:06)
[2019-12-18] MEDS: CLOPIDOGREL 75 MG TABLET PO SCH (08:06)
[2019-12-18] MEDS: ASPIRIN EC 81 MG TABLET.DR PO SCH (08:06)
[2019-12-18] MEDS: MEGESTROL ACETATE 20 MG TABLET PO SCH (08:06)
[2019-12-18] MEDS: LOSARTAN POTASSIUM 50 MG TABLET PO SCH (08:07)
[2019-12-18] MEDS ORDERED: ASPI-618 PO (11:08)
[2019-12-18] MEDS ORDERED: ZOLP5TAB8 PO (11:08)
[2019-12-18] MEDS ORDERED: DOCU100C36 PO (11:08)
[2019-12-18] MEDS ORDERED: LOSA50TA3 PO (11:08)
[2019-12-18] MEDS ORDERED: MAGN400O6 PO (11:08)
[2019-12-18] MEDS ORDERED: PANT40TA2 PO (11:08)
[2019-12-18] MEDS ORDERED: MEGE20TA5 PO (11:08)
[2019-12-18] MEDS ORDERED: CLOP75TA33 PO (11:08)
[2019-12-18] MEDS ORDERED: RISP1TAB7 PO (11:08)
[2019-12-18] MEDS ORDERED: MIRT15TA7 PO (11:08)
[2019-12-18] MEDS ORDERED: INSU100V28 SQ (11:08)
[2019-12-18 11:29] VITALS: BP 125/74
[2019-12-18] MEDS: ACETAMINOPHEN 325 MG TABLET PO PRN (11:39)
--- NOTE | 2019-12-18 12:37 | NUR ---
pt. getting discharged. gave report to RITA Cleveland at [facility]. Pt. aware of discharge plans spoke to window caser
--- NOTE | 2019-12-18 14:20 | NUR ---
ambulance here to picking table worker pt. pt. in stable condition. IV removed. ID band removed. all belongings with pt. all discharge paperwork signed and with pt. gave report to RITA Cleveland at [facility] and rehab.
== END 2019-12-18 14:25 | DRG 45 ==
LOC: TELE3 17:58 → MEDSURG3 12-14 11:05 → TELE-TD3 12-16 22:15 → MEDSURG3 12-17 17:48
PROVIDERS: ADMIT Hospitalist; ATTEND Registered Nurse
PROC: 05H533Z Insertion of Infusion Device into Right Subclavian Vein, Percutaneous Approach (ICD-10-PCS; principal; 2019-12-15)
PROC: B546ZZA Ultrasonography of Right Subclavian Vein, Guidance (ICD-10-PCS; principal; 2019-12-15)
DX: I63.89 Other cerebral infarction (principal); G93.6 Cerebral edema; I77.74 Dissection of vertebral artery; G91.1 Obstructive hydrocephalus; F33.3 Major depressive disorder, recurrent, severe with psychotic symptoms; R65.10 Systemic inflammatory response syndrome (SIRS) of non-infectious origin without acute organ dysfunction; Z98.2 Presence of cerebrospinal fluid drainage device; R00.1 Bradycardia, unspecified; F17.210 Nicotine dependence, cigarettes, uncomplicated; E87.6 Hypokalemia; E11.9 Type 2 diabetes mellitus without complications; E66.9 Obesity, unspecified; E78.5 Hyperlipidemia, unspecified; I10 Essential (primary) hypertension; Z86.73 Personal history of transient ischemic attack (TIA), and cerebral infarction without residual deficits; R42 Dizziness and giddiness; R40.2362 Coma scale, best motor response, obeys commands, at arrival to emergency department; R40.2142 Coma scale, eyes open, spontaneous, at arrival to emergency department; R40.2252 Coma scale, best verbal response, oriented, at arrival to emergency department; R29.700 NIHSS score 0; Z72.89 Other problems related to lifestyle; D72.829 Elevated white blood cell count, unspecified; H91.90 Unspecified hearing loss, unspecified ear
CPT/HCPCS: 36415; 70450; 71045; 83605; 83735; 84100; 84443; 85025; 85730; 86625; 87040; 87046; 87086; 87177; G0378; J1815; J3480; J3490; J7030